=== PATIENT | female | born 1965 | race American Indian/Alaskan Native ===

== ENCOUNTER 2018-07-19 23:02 | Inpatient (IN) | payer BC ==
[2018-07-19] MEDS ORDERED: CATAPRES ONE (23:27)
[2018-07-19] MEDS ORDERED: CATAPRES PO ONE (23:39)
[2018-07-20 00:13] LABS: BUN/Creatinine Ratio 16; Blood Urea Nitrogen 14 mg/dL (7-17); Calcium 9.5 mg/dL (8.4-10.2); Hemolysis Index 4
[2018-07-20 00:16] LABS: Basophils % (Auto) 0.6 % (0.0-1.8); Eosinophils % (Auto) 0.4 % (0.0-4.3); Hematocrit 37.6 % (30.3-42.9); Lymphocytes # (Auto) 2.2 K/mm3 (1.2-5.4); Lymphocytes % (Auto) 28.2 % (13.4-35.0); Mean Corpuscular HGB Conc 32 % (30-34); Mean Corpuscular Volume 77 fl (79-97); Monocytes # (Auto) 0.6 K/mm3 (0.0-0.8); Monocytes % (Auto) 8.2 % (0.0-7.3); Platelet Count 297 K/mm3 (140-440); Red Blood Count 4.87 M/mm3 (3.65-5.03); Red Cell Distribution Width 17.3 % (13.2-15.2)
[2018-07-20 00:19] LABS: Mean Corpuscular Hemoglobin 25 pg (28-32)
--- NOTE | 2018-07-20 00:20 | Cat Scan Report ---
FINAL REPORT EXAM: CT HEAD/BRAIN WO CON HISTORY: neuro deficits < 6hrs or sx present upon awakening COMPARISON: CT of the head from November 2016. TECHNIQUE: Axial images obtained skull base through vertex. FINDINGS: No acute intracranial hemorrhage, midline shift or pathologic extra axial fluid collection. Ventricles and cisterns are normal in size and configuration for the patient's age. Donato-white differentiation preserved. Calvarium grossly intact. Ocular globes are grossly unremarkable. Mild mucosal thickening the visualized paranasal sinuses. Mastoid air cells are clear. IMPRESSION: No grossly acute intracranial abnormality.
[2018-07-20 00:43] LABS: INR 1.05 (0.87-1.13); Partial Thromboplastin Time 26.4 Sec. (24.2-36.6)
[2018-07-20] MEDS ORDERED: ASPIRIN PO ONE (02:11)
--- NOTE | 2018-07-20 02:26 | Emergency Department Report ---
HPI - General Chief Complaint: Weakness Time Seen by Provider: 07/20/18 02:10 - HPI HPI: Room 24 The patient is a 52-year-old female presenting with a chief complaint of left- sided weakness. The patient states her symptoms began approximately 22:00 07/18. The patient states she noticed some slight weakness on the left side. Patient states the weakness has worsened today. Patient denied ever having dysarthria, dysphasia or paresthesia. Patient denies pain of any type. The patient states she had a TIA approximately 2 years ago Location: [See above] Duration: Constant since 22:00 07/18/2018 Quality: Weakness Severity: mild Modifying factors: [see above] Context: [see above] Mode of transportation: [not driving] ED Past Medical Hx - Past Medical History Hx Hypertension: Yes Hx CVA: Yes (TIA) Additional medical history: Obesity - Surgical History Hx Cholecystectomy: Yes - Family History Family history: no significant - Social History Smoking Status: Never Smoker Substance Use Type: None - Medications Home Medications: Home Medications Medication Instructions Recorded Confirmed Last Taken Type Lisinopril [Zestril TAB] 20 mg PO DAILY 11/02/14 11/02/14 Unknown History Lisinopril/Hydrochlorothiazide 1 tab PO QHS 11/02/14 11/02/14 Unknown History [Zestoretic 20-25 mg] Promethazine /Codeine 5 ml PO Q6H PRN #100 ml 11/02/14 Unknown Rx [Phenergan/Codeine 6.25-10 mg/5 ml] Aspirin [Aspirin BABY CHEW TAB] 81 mg PO QDAY #30 tab.chew 12/06/16 Unknown Rx Cyclobenzaprine HCl [Flexeril 5 MG 5 mg PO Q8HR PRN #15 tab 12/06/16 Unknown Rx TAB] ED Review of Systems ROS: Stated complaint: L SIDE PAIN/WEAKNESS Other details as noted in HPI Constitutional: no symptoms reported Eyes: denies: eye pain ENT: denies: throat pain Respiratory: no symptoms reported Cardiovascular: denies: chest pain Endocrine: no symptoms reported Gastrointestinal: denies: abdominal pain Genitourinary: denies: dysuria Musculoskeletal: denies: back pain Neurological: weakness. denies: headache, paresthesias Physical Exam - Physical Exam Vital Signs: Vital Signs 07/19/18 07/19/18 07/19/18 23:09 23:28 23:40 Temperature 99.0 F 99 F Pulse Rate 112 H 92 H 92 H Respiratory 18 16 Rate Blood Pressure 212/112 212/112 212/112 O2 Sat by Pulse 100 99 Oximetry Physical Exam: GENERAL: The patient is well-developed well-nourished female lying on stretcher not appearing to be in acute distress. [] HEENT: Normocephalic. Atraumatic. Extraocular motions are intact. Patient has moist mucous membranes. NECK: Supple. Trachea midline CHEST/LUNGS: Clear to auscultation. There is no respiratory distress noted. HEART/CARDIOVASCULAR: Regular. There is no tachycardia. There is no gallop rub or murmur. ABDOMEN: Abdomen is soft, nontender. Patient has normal bowel sounds. There is no abdominal distention. SKIN: There is no rash. There is no edema. There is no diaphoresis. NEURO: The patient is awake, alert, and oriented. The patient is cooperative. The patient has no focal neurologic deficits. The patient has normal speech. Cranial nerves II through XII grossly intact, no drift. Normal sensation throughout MUSCULOSKELETAL: There is no evidence of acute injury. NIHSS= 0 LOC a. Alert= 0 Not alert but arousable to minor stimuli=1 Not alert requires repeated or strong stimuli to move= 2 Responds only reflex motor or unresponsive=3 b. asks month and age answers both correctly= 0 answers one correctly= 1 answers neither correctly= 2 Best Gaze normal= 0 abnormal in one or both but forced deviation or total paresis absent= 1 forced deviation or total gaze paresis= 2 Visual no visual loss= 0 partial hemianopia= 1 complete hemianopia= 2 bilateral hemianopia= 3 Facial Palsy normal= 0 minor paralysis= 1 partial paralysis= 2 complete paralysis= 3 Motor Arm no drift= 0 drift before 10 secs but doesnt hit bed= 1 some effort against gravity= 2 no effort against gravity= 3 no movement= 4 Motor leg no drift= 0 drift before 5 secs but doesnt hit bed= 1 drifts to bed before 5 secs= 2 no effort against gravity= 3 no movement= 4 Limb ataxia absent=0 present in one limb= 1 present in two limbs= 2 Sensory normal= 0 mild sensory loss= 1 severe (unaware of being touched)= 2 Best language mild/some loss of fluency= 1 severe= 2 mute= 3 Dysarthria normal= 0 slurs some words= 1 severe/unintelligible= 2 Extinction and Inattention no abnormality= 0 visual, tactile, auditory or personal inattention= 1 profound (doesnt recognize own hand or orients to only one side= 2 ED Course Vital Signs 07/19/18 07/19/18 07/19/18 23:09 23:28 23:40 Temperature 99.0 F 99 F Pulse Rate 112 H 92 H 92 H Respiratory 18 16 Rate Blood Pressure 212/112 212/112 212/112 O2 Sat by Pulse 100 99 Oximetry ED Medical Decision Making - Lab Data Result diagrams: 07/19/18 23:52 07/19/18 23:52 Laboratory Tests 07/19/18 07/19/18 07/19/18 23:52 23:52 23:52 WBC 7.8 RBC 4.87 Hgb 12.0 Hct 37.6 MCV 77 L MCH 25 L MCHC 32 RDW 17.3 H Plt Count 297 Lymph % (Auto) 28.2 [place] % (Auto) 8.2 H Eos % (Auto) 0.4 Baso % (Auto) 0.6 Lymph # 2.2 [place] # 0.6 Eos # 0.0 Baso # 0.0 Seg Neutrophils % 62.6 Seg Neutrophils # 4.9 PT 14.2 INR 1.05 APTT 26.4 Thrombin Time Sodium 138 Potassium 3.4 L Chloride 95.5 L Carbon Dioxide 28 Anion Gap 18 BUN 14 Creatinine 0.9 Estimated GFR > 60 BUN/Creatinine Ratio 16 Glucose 131 H Calcium 9.5 Troponin T < 0.010 HCG, Qual 07/19/18 07/19/18 23:52 23:52 WBC RBC Hgb Hct MCV MCH MCHC RDW Plt Count Lymph % (Auto) [place] % (Auto) Eos % (Auto) Baso % (Auto) Lymph # [place] # Eos # Baso # Seg Neutrophils % Seg Neutrophils # PT INR APTT Thrombin Time 14.2 L Sodium Potassium Chloride Carbon Dioxide Anion Gap BUN Creatinine Estimated GFR BUN/Creatinine Ratio Glucose Calcium Troponin T HCG, Qual Negative - EKG Data -: EKG Interpreted by Me EKG shows normal: sinus rhythm Rate: normal - EKG Data When compared to previous EKG there are: previous EKG unavailable Interpretation: other (no ischemic changes seen) - Medical Decision Making I'm unable to detect objective evidence of a neurologic deficit; however, given the patient's subjective sensation of unilateral weakness in addition to her history of previous TIA I will admit the patient the hospital for further evaluation Critical care attestation.: If time is entered above; I have spent that time in minutes in the direct care of this critically ill patient, excluding procedure time. ED Disposition Clinical Impression: Left-sided weakness, Hypertension Disposition: OP ADMIT IP TO THIS HOSP Is pt being admited?: Yes Does the pt Need Aspirin: Yes Condition: Fair Instructions: Hypertension (ED) Referrals: PRIMARY CARE, [Primary Care Provider] - 3-5 Days Time of Disposition: 02:30 (Hospitalist paged (Dr. Florecita Santizo))
[2018-07-20] MEDS ORDERED: ZOFRAN IV PRN (04:34)
[2018-07-20] MEDS ORDERED: TYLENOL PO PRN (04:34)
[2018-07-20] MEDS ORDERED: MILK OF MAGNESIA PO PRN (04:34)
[2018-07-20] MEDS ORDERED: SODIUM CHLORIDE FLUSH SYRINGE 10 ML IV PRN (04:34)
[2018-07-20] MEDS ORDERED: DULCOLAX PR PRN (04:34)
--- NOTE | 2018-07-20 04:40 | History and Physical Report ---
History of Present Illness Date of examination: 07/20/18 History of present illness: 52-year-old white male a history of hypertension, obesity comes emergency complaining of left-sided weakness that started last night, her symptoms lasted for 4 hours. Her sister was just diagnosed with a massive CVA. Patient states she is compliant with medications Review of systems Constitutional: no weight loss, chills, fever Ears, eyes, nose, mouth and throat: no nasal congestion, no nasal discharge, no sinus pressure, no vision change, no red eye. Neck: No neck pain or rigidity. Cardiovascular: no chest pain, palpitations Respiratory: no cough, shortness of breath Gastrointestinal: no abdominal pain hematochezia Genitourinary : no frequency , no hematuria Musculoskeletal: no joint swelling or muscle ache Integumentary: no rash, no pruritis Neurological: no parathesias Endocrine: no cold or heat intolerance, no polyuria or polydipsia Hematologic/Lymphatic: no easy bruising, no easy bleeding, no gland swelling Allergic/Immunologic: no urticaria, no angioedema. PAST MEDICAL HISTORY: Hypertension PAST SURGICAL HISTORY: Cholecystectomy SOCIAL HISTORY: No alcohol, no drugs, tobacco FAMILY HISTORY: Hypertension Medications and Allergies Allergies Allergy/AdvReac Type Severity Reaction Status Date / Time No Known Allergies Allergy Unverified 11/02/14 01:43 Home Medications Medication Instructions Recorded Confirmed Last Taken Type Lisinopril [Zestril TAB] 20 mg PO DAILY 11/02/14 11/02/14 Unknown History Lisinopril/Hydrochlorothiazide 1 tab PO QHS 11/02/14 11/02/14 Unknown History [Zestoretic 20-25 mg] Promethazine /Codeine 5 ml PO Q6H PRN #100 ml 11/02/14 Unknown Rx [Phenergan/Codeine 6.25-10 mg/5 ml] Aspirin [Aspirin BABY CHEW TAB] 81 mg PO QDAY #30 tab.chew 12/06/16 Unknown Rx Cyclobenzaprine HCl [Flexeril 5 MG 5 mg PO Q8HR PRN #15 tab 12/06/16 Unknown Rx TAB] Exam - Physical Exam Narrative exam: Gen. appearance: Patient lying in bed, no apparent distress HEENT: Normocephalic, atraumatic, pupils equally round and reactive to light, extraocular movement intact, and no sclericterus,. No JVD or thyromegaly or nodule,neck supple, no carotid bruit ,mucous membranes moist, no exudate or erythema Heart: S1, S2, regular rate and rhythm Lungs: Clear bilaterally, breathing comfortable Abdomen: Positive bowel sounds, non-tender, nondistended, no organomegaly Extremity:no edema cyanosis, clubbing Skin: no rash, dry, warm Neuro: Oriented 3, cranial nerves II-12 intact, speech is fluent, motor and sensory intact - Constitutional Vitals: Temp Pulse Resp BP Pulse Ox 99 F 64 15 140/82 97 07/19/18 23:28 07/20/18 04:00 07/20/18 04:00 07/20/18 04:00 07/20/18 04:00 Results - Labs CBC & Chem 7: 07/19/18 23:52 07/19/18 23:52 Labs: Abnormal lab results 07/19/18 07/19/18 07/19/18 Range/Units 23:52 23:52 23:52 MCV 77 L (79-97) fl MCH 25 L (28-32) pg RDW 17.3 H (13.2-15.2) % [place] % (Auto) 8.2 H (0.0-7.3) % Thrombin Time 14.2 L (15.1-19.6) Sec. Potassium 3.4 L (3.6-5.0) mmol/L Chloride 95.5 L (98-107) mmol/L Glucose 131 H (65-100) mg/dL - Imaging and Cardiology EKG: image reviewed CT Scan - head: report reviewed Assessment and Plan Assessment TIA Hypertension Plan Admit to medicine Obtain MRI of that, carotid Doppler, echo Consult neurology, physical and occupational therapy Start aspirin, statin, DVT prophylaxis
--- NOTE | 2018-07-20 09:42 | Event Note ---
Date: 07/20/18 Patient seen and examined. Admitted for left-sided weakness. CT scan of the brain was unremarkable. Follow-up MRI of the brain as well as report of carotid Dopplers. Statins, neuro check every 4hrs, PT OT about additional treatment
[2018-07-20] MEDS: ASPIRIN PO SCH (10:37)
[2018-07-20] MEDS: LOVENOX SUB-Q SCH (10:38)
--- NOTE | 2018-07-20 11:49 | Magnetic Resonance Report ---
FINAL REPORT EXAM: MRI BRAIN WO CONTRAST HISTORY: LEFT SIDE WEAKNESS TECHNIQUE: MRI of the brain without and with IV contrast. PRIORS: None currently available. FINDINGS: Midline structures are unremarkable. There is no tonsillar ectopy. Age appropriate renee-white matter differentiation is noted. There is no hydrocephalus. There is no mass. There is no hemorrhage. There is no midline shift. There is no restricted diffusion to suggest acute ischemia. The CP angles are grossly noted. Major flow voids are present. Paranasal sinuses are unremarkable. Globes are intact. Calvarial signal characteristics are grossly unremarkable. Extracranial soft tissues are intact. IMPRESSION: No acute intracranial findings.
[2018-07-20] MEDS: PRAVACHOL PO SCH (21:06)
[2018-07-21 08:03] LABS: Chol/HDL Ratio 2.68 %
[2018-07-21] MEDS: LOVENOX SUB-Q SCH (09:34)
[2018-07-21] MEDS: ASPIRIN PO SCH (09:34)
--- NOTE | 2018-07-21 09:54 | Progress Note ---
Assessment and Plan - TIA Continue with aspirin, statins, recheck T4, PT OT evaluation and treatment. CT scan of the brain was normal. MRI of the pain was unremarkable. We'll follow results of echo and carotid Doppler on outpatient basis. - Hypertension Optimize control - Hypokalemia Supplemental recheck - Morbid Obesity with a BMI of 40.9 Counseling on diet control - Hyperglycemia Option A1c - DVT prophylaxis with Lovenox and GI with Pepcid Subjective Date of service: 07/21/18 Principal diagnosis: hypertension, hypokalemia, hyperglycemia and TIA Interval history: Denies any headache. No weakness on the left side. No slurred speech. Objective - Exam Narrative Exam: Constitutional: Well-nourished well-developed. In no distress Head: Normocephalic atraumatic Eyes: Pupils are equal round and reactive to light Nose: No enlarged turbinates, no septal deviation. Mouth: Moist mucous membranes. Neck: Supple no thyromegaly. No bruit. No JVD Heart: Regular rate and rhythm, S1-S2 abnormal. No rubs murmurs or gallop Lungs: Clear to auscultation bilaterally no rales or rhonchi Abdomen: Soft, nontender. Bowel sound are present. Extremities: No edema no cyanosis and no clubbing. Neuro: Alert oriented Oriented x3. No focal sensory or motor deficit. Skin: No rashes no hyperemic spots Psychiatry: Euthymic. Calm. - Constitutional Vitals: Vital Signs - 12hr 07/21/18 07/21/18 07/21/18 00:06 04:39 08:11 Temperature 98.1 F 97.5 F L 98.5 F Pulse Rate 70 60 63 Respiratory 20 18 18 Rate Blood Pressure 168/92 147/86 148/82 O2 Sat by Pulse 99 99 99 Oximetry - Labs CBC & Chem 7: 07/19/18 23:52 07/19/18 23:52
[2018-07-21] MEDS: APRESOLINE IV PRN ×2 (12:44→19:35)
[2018-07-21] MEDS: NORVASC PO SCH (19:34)
[2018-07-21] MEDS: ZESTRIL PO SCH (19:39)
[2018-07-21] MEDS: PRAVACHOL PO SCH (21:22)
[2018-07-22 08:46] VITALS: BP 142/87
[2018-07-22] MEDS ORDERED: APRESOLINE PO SCH (10:00)
[2018-07-22] MEDS: ZESTRIL PO SCH (10:39)
[2018-07-22] MEDS: NORVASC PO SCH (10:39)
[2018-07-22] MEDS: ASPIRIN PO SCH (10:40)
[2018-07-22] MEDS: LOVENOX SUB-Q SCH (10:40)
--- NOTE | 2018-07-22 12:48 | Progress Note ---
Assessment and Plan Assessment and plan: --Transient ischemic attack; Workup so far CT head without contrast; negative for acute abnormality MRI of the brain; no acute abnormality noted Carotid Doppler; less than 50% stenosis Echocardiogram; pending report Physical therapy and supportive care --Hypertension; moderate control Continue current antihypertensives and when necessary medications --Hypokalemia; replenish per protocol and monitor levels --Morbid obesity; counseling advised dietary modification and exercise as tolerated And weight reduction when medically stable --DVT prophylaxis; Steven Hospitalist Physical - Constitutional Vitals: Temp Pulse Resp BP Pulse Ox 98.5 F 65 20 142/87 99 07/22/18 08:04 07/22/18 10:39 07/22/18 08:04 07/22/18 10:39 07/22/18 08:04 Results - Labs CBC & Chem 7: 07/19/18 23:52 07/19/18 23:52 Labs: Laboratory Last Values WBC 7.8 K/mm3 (4.5-11.0) 07/19/18 23:52 RBC 4.87 M/mm3 (3.65-5.03) 07/19/18 23:52 Hgb 12.0 gm/dl (10.1-14.3) 07/19/18 23:52 Hct 37.6 % (30.3-42.9) 07/19/18 23:52 MCV 77 fl (79-97) L 07/19/18 23:52 MCH 25 pg (28-32) L 07/19/18 23:52 MCHC 32 % (30-34) 07/19/18 23:52 RDW 17.3 % (13.2-15.2) H 07/19/18 23:52 Plt Count 297 K/mm3 (140-440) 07/19/18 23:52 Lymph % (Auto) 28.2 % (13.4-35.0) 07/19/18 23:52 [place] % (Auto) 8.2 % (0.0-7.3) H 07/19/18 23:52 Eos % (Auto) 0.4 % (0.0-4.3) 07/19/18 23:52 Baso % (Auto) 0.6 % (0.0-1.8) 07/19/18 23:52 Lymph # 2.2 K/mm3 (1.2-5.4) 07/19/18 23:52 [place] # 0.6 K/mm3 (0.0-0.8) 07/19/18 23:52 Eos # 0.0 K/mm3 (0.0-0.4) 07/19/18 23:52 Baso # 0.0 K/mm3 (0.0-0.1) 07/19/18 23:52 Seg Neutrophils % 62.6 % (40.0-70.0) 07/19/18 23:52 Seg Neutrophils # 4.9 K/mm3 (1.8-7.7) 07/19/18 23:52 PT 14.2 Sec. (12.2-14.9) 07/19/18 23:52 INR 1.05 (0.87-1.13) 07/19/18 23:52 APTT 26.4 Sec. (24.2-36.6) 07/19/18 23:52 Thrombin Time 14.2 Sec. (15.1-19.6) L 07/19/18 23:52 Sodium 138 mmol/L (137-145) 07/19/18 23:52 Potassium 3.4 mmol/L (3.6-5.0) L 07/19/18 23:52 Chloride 95.5 mmol/L (98-107) L 07/19/18 23:52 Carbon Dioxide 28 mmol/L (22-30) 07/19/18 23:52 Anion Gap 18 mmol/L 07/19/18 23:52 BUN 14 mg/dL (7-17) 07/19/18 23:52 Creatinine 0.9 mg/dL (0.7-1.2) 07/19/18 23:52 Estimated GFR > 60 ml/min 07/19/18 23:52 BUN/Creatinine Ratio 16 % 07/19/18 23:52 Glucose 131 mg/dL (65-100) H 07/19/18 23:52 Calcium 9.5 mg/dL (8.4-10.2) 07/19/18 23:52 Troponin T < 0.010 ng/mL (0.00-0.029) 07/19/18 23:52 Triglycerides 70 mg/dL (2-149) 07/21/18 07:12 Cholesterol 110 mg/dL (50-199) 07/21/18 07:12 LDL Cholesterol Direct 63 mg/dL (50-130) 07/21/18 07:12 HDL Cholesterol 41 mg/dL (40-59) 07/21/18 07:12 Cholesterol/HDL Ratio 2.68 % 07/21/18 07:12 HCG, Qual Negative (Negative) 07/19/18 23:52
--- NOTE | 2018-07-22 13:24 | Discharge Summary ---
Providers - Providers Date of Admission: 07/20/18 06:00 Date of discharge: 07/22/18 Attending physician: KASH SHAFFER 07/20/18 04:34 Occupational Therapy Evaluate and Treat [CONS] Routine Comment: Reason For Exam: Neuro deficits Physical Therapy Evaluation and Treat [CONS] Routine Comment: Reason For Exam: Neuro deficits Primary care physician: PUBLICATION DESIGNER Hospitalization Condition: Fair Pertinent studies: CT head without contrast; negative for acute abnormality MRI of the brain; no acute abnormality noted Carotid Doppler; less than 50% stenosis Echocardiogram; pending report Hospital course: Discharge Diagnosis: --Transient ischemic attack; Workup so far CT head without contrast; negative for acute abnormality MRI of the brain; no acute abnormality noted Carotid Doppler; less than 50% stenosis Echocardiogram; pending report Physical therapy and supportive care --Hypertension; moderate control Continue current antihypertensives and when necessary medications --Hypokalemia; replenish per protocol and monitor levels --Morbid obesity; counseling advised dietary modification and exercise as tolerated And weight reduction when medically stable Disposition: DC- TO HOME OR SELFCARE Time spent for discharge: 32 min Core Measure Documentation - Palliative Care Palliative Care/ Comfort Measures: Not Applicable - Core Measures Any of the following diagnoses?: none Exam - Constitutional Vitals: Temp Pulse Resp BP Pulse Ox 98.5 F 65 20 142/87 99 07/22/18 08:04 07/22/18 10:39 07/22/18 08:04 07/22/18 10:39 07/22/18 08:04 General appearance: Present: no acute distress, well-nourished, obese - EENT Eyes: Present: PERRL, EOM intact - Neck Neck: Present: supple, normal ROM - Respiratory Respiratory effort: normal Respiratory: negative: rales, rhonchi, wheezing - Cardiovascular Rhythm: regular Heart Sounds: Present: S1 & S2 - Extremities Extremities: no ischemia, No edema - Abdominal General gastrointestinal: Present: soft, non-tender, non-distended, normal bowel sounds - Integumentary Integumentary: Present: clear, warm - Musculoskeletal Musculoskeletal: strength equal bilaterally - Psychiatric Psychiatric: appropriate mood/affect, cooperative - Neurologic Neurologic: CNII-XII intact, moves all extremities Plan Activity: no restrictions Diet: low salt Additional Instructions: Diet modification and exercise as tolerated and weight reduction when medically stable. Advised to see private neurologist for further evaluation and management as needed Follow up with: PRIMARY CAREMD [Primary Care Provider] - 3-5 Days FELICE SCHWARTZ MD [Staff Physician] - 7 Days Prescriptions: amLODIPine [Norvasc] 10 mg PO QDAY #30 tablet hydrALAZINE [Apresoline TAB] 25 mg PO DAILY #30 tablet
== END 2018-07-22 17:43 | disposition home or self-care (01) | DRG 69 ==
LOC: ED 23:02 → 4A 07-20 06:00
PROVIDERS: ADMIT Internal Medicine; ATTEND Internal Medicine
DX: G45.9 Transient cerebral ischemic attack, unspecified (principal); Z68.41 Body mass index [BMI] 40.0-44.9, adult; I10 Essential (primary) hypertension; E87.6 Hypokalemia; E66.01 Morbid (severe) obesity due to excess calories; Z71.3 Dietary counseling and surveillance; R73.9 Hyperglycemia, unspecified; Z82.3 Family history of stroke; Z90.49 Acquired absence of other specified parts of digestive tract; Z82.49 Family history of ischemic heart disease and other diseases of the circulatory system; Z79.82 Long term (current) use of aspirin; Z79.899 Other long term (current) drug therapy
CPT/HCPCS: 36415; 70450; 70551; 80048; 80061; 84484; 84703; 85025; 85610; 85670; 85730; 93005; 93010; 93306; 93880; A9270-GY; J0360; J1650